=== PATIENT | female | born 1955 | race Caucasian/White ===

== ENCOUNTER 2017-07-06 06:05 | Day surgery (SDC) | payer BC ==
--- NOTE | 2017-07-05 23:39 | HP ---
SHORT STAY HISTORY AND PHYSICAL DATE OF ADMISSION: 07/06/2017 HISTORY OF PRESENT ILLNESS: This is a 61-year-old female who comes in for an EGD and colon oscopy. The patient also has a family history of colon cancer. At the present time, she has no spec [facility] symptoms. She does complain of chronic acid reflux. She had no heartburn, indigestion and r egurgitation. The reflux is very longstanding. The patient is undergoing EGD because of longstandin g acid reflux and a colonoscopy for colon cancer screening. ALLERGIES: None. MEDICAL ILLNESSES: 1. Chronic acid reflux. 2. Cardiomyopathy. 3. Hypertension. 4. Chronic obstructive pulmonary disease. 5. Cardiac arrhythmia. 6. Rheumatoid arthritis. 7. Mitral valve prolapse. SOCIAL HISTORY: Ex-smoker. She does drink alcohol socially. PHYSICAL EXAMINATION: GENERAL: Appears comfortable. VITAL SIGNS: Pulse is 72, blood pressure 110/76. NECK: Supple. CARDIOVASCULAR SYSTEM: First and second heart sounds are normal. LUNGS: Clear to auscultation. ABDOMEN: Soft to palpate. No organomegaly. No tenderness. No masses. ADMITTING DIAGNOSES: 1. Chronic acid reflux. 2. Family history of colon cancer. PLAN: EGD and colonoscopy.
--- NOTE | 2017-07-06 12:03 | OP ---
DATE OF SURGERY: 07/06/2017 OPERATIVE PROCEDURE: Colonoscopy. PREOPERATIVE DIAGNOSIS: A 61-year-old female with family history of colon cancer, undergoi ng colonoscopy for colon cancer screening. POSTOPERATIVE DIAGNOSES: 1. Sigmoid diverticular disease. 2. Hemorrhoids. 3. Retained stool coating the mucosa throughout. PROCEDURE IN DETAIL: The patient was placed on her left lateral position and was given sedation by A nesthesia Department. A rectal exam was done before the scope was advanced into the rectum. The pat ient was found to have hemorrhoids. No other lesions were felt. A Pentax video colonoscope was intr oduced into the rectum and advanced all the way into the cecum. The patient has fecal material coati ng the mucosa of the colon. Water was irrigated and washed out. The appendiceal orifice, ileocecal valve, and cecum, no pathology seen. The mucosa appeared normal throughout the colon. Withdrawal of scope from the cecum, ascending colon, hepatic flexure, transverse colon, splenic flexure, and desce nding colon, no pathology seen. The sigmoid colon showed scattered diverticular disease. Retroflexi on of the scope in the rectum showed hemorrhoids.
--- NOTE | 2017-07-06 13:03 | OP ---
DATE OF PROCEDURE: 07/06/2017 SURGEON: Adolph Mendoza M.D. OPERATIVE PROCEDURE: Esophagogastroduodenoscopy with biopsy. PREOPERATIVE DIAGNOSIS: A 61-year-old female with chronic acid reflux, undergoing esophago gastroduodenoscopy. POSTOPERATIVE DIAGNOSES: 1. Esophagitis with bleeding erosions over the distal esophagus. 2. Hiatus hernia. Otherwise, exam was normal. PROCEDURE IN DETAIL: The patient was placed on her left lateral position and was given sedation by A nesthesia Department. Pentax video gastroscope under direct vision was passed down the oropharynx, p ast the GE junction, into the stomach and subsequently into the descending duodenum. The esophageal mucosa appeared normal over the upper two-thirds. Over the distal esophagus, patient was found to naqvi ve linear erosions with esophagitis. She has a moderate sized hiatus hernia. Retroflexion failed to show any lesions in the fundus or cardia. The gastric body, gastric antrum, no pathology seen. The duodenal bulb and descending duodenum, no pathology seen. Biopsies were obtained from the distal es ophagus. The stomach was decompressed and the scope removed. DISCHARGE PLANNING RECOMMENDATIONS: 1. Discontinue omeprazole as before. 2. Advised to call me if she develops any chest pain, abdominal pain, fever, melena, and hematochezi a. 3. To come back in clinic in 2 weeks.
[2017-07-06] MEDS ORDERED: Propofol 200 MG/20 ML VIAL ONE (15:59)
[2017-07-06] MEDS ORDERED: Lidocaine 1% PF 5 ML VIAL ONE (15:59)
== END 2017-07-06 09:40 | disposition home or self-care (01) ==
LOC: SDC 06:05
PROVIDERS: ATTEND Internal Medicine Gastroenterology
PROC: 0DJD8ZZ Inspection of Lower Intestinal Tract, Via Natural or Artificial Opening Endoscopic (ICD-10-PCS; principal; 2017-07-06)
PROC: 0DB58ZX Excision of Esophagus, Via Natural or Artificial Opening Endoscopic, Diagnostic (ICD-10-PCS; principal; 2017-07-06)
DX: Z12.11 Encounter for screening for malignant neoplasm of colon (principal); K21.0 Gastro-esophageal reflux disease with esophagitis; K44.9 Diaphragmatic hernia without obstruction or gangrene; K57.30 Diverticulosis of large intestine without perforation or abscess without bleeding; K64.9 Unspecified hemorrhoids; I42.9 Cardiomyopathy, unspecified; I10 Essential (primary) hypertension; J44.9 Chronic obstructive pulmonary disease, unspecified; M06.9 Rheumatoid arthritis, unspecified; I34.1 Nonrheumatic mitral (valve) prolapse; Z80.0 Family history of malignant neoplasm of digestive organs; Z90.49 Acquired absence of other specified parts of digestive tract; Z98.890 Other specified postprocedural states
CPT/HCPCS: 88305; 88312; 88313; J2001; J2704

== ENCOUNTER 2018-01-09 17:11 | Emergency (ER) | payer BC ==
--- NOTE | 2018-01-09 19:06 | RAD ---
PORTABLE CHEST: 01/09/18 HISTORY: Abdominal pain with diarrhea. Lungs are clear. The heart and mediastinum are unremarkable. IMPRESSION: No acute findings. POS: [facility]
[2018-01-09 19:17] LABS: #Basophils 0.1 thou/uL (0.0-0.2); #Eosinphils 0.1 thou/uL (0.0-0.7); #Lymphocytes 3.8 thou/uL (1.20-3.40); #Monocytes 0.6 thou/uL (0.11-0.59); #Neutrophils 5.6 thou/uL (1.40-6.50); %Eosinophils 0.8 % (0.0-10.0); %Lymphocytes 37.4 % (21.0-51.0); %Monocytes 5.8 % (0.0-10.0); %Neutrophils 55.1 % (42.0-75.0); Hemoglobin 12.4 g/dL (12.0-16.0); Mean Corpuscular HGB CONC 32.5 g/dL (32.0-36.0); Mean Corpuscular Hemoglobin 29.9 pg (27.0-31.0); Mean Platelet Volume 6.4 fL (7.4-10.4); Platelet Count 369 thou/uL (130-400); RBC Distribution Width 15.4 % (11.5-14.5); Red Blood Cell (RBC) Count 4.13 mill/uL (4.20-5.40); White Blood Cell (WBC) Count 10.2 thou/uL (4.8-10.8)
[2018-01-09 19:22] LABS: BHCG - Serum Negative (NEGATIVE); Pregs Control Background? CLEAR/WHITE (CLR/WHITE); Pregs Control Bar Appear? YES (CONTROL BAR)
[2018-01-09 19:30] LABS: ALT (SGPT) 13 U/L (8-55); AST (SGOT) 11 U/L (5-34); Albumin 4.4 g/dL (3.4-4.8); Alkaline Phosphatase 85 U/L (40-150); Anion Gap 16 mmol/L (10-20); BUN (Urea Nitrogen) 21 mg/dL (9.8-20.1); Bilirubin, Total 0.3 mg/dL (0.2-1.2); Calc. Creatinine Clearance 0 mL/min (70-130); Calcium 10.1 mg/dL (7.8-10.44); Carbon Dioxide 19 mmol/L (23-31); Chloride 107 mmol/L (98-107); Estimated GFR-MDRD 53; Globulin 2.7 g/dL (2.4-3.5); Glucose 107 mg/dL (80-115); Potassium 3.7 mmol/L (3.5-5.1); Protein, Total 7.1 g/dL (6.0-8.3); Sodium 138 mmol/L (136-145)
[2018-01-09 19:35] LABS: CKMB 0.5 ng/mL (0-6.6); Troponin I Less than 0.010 ng/mL (< 0.028)
[2018-01-09 21:22] LABS: Bilirubin Negative (Negative); Blood, Urine Large (Negative); Clarity CLOUDY (Clear); Glucose, Urine (Dipstick) Negative (Negative); Leukocyte Trace (Negative); Nitrite Negative (Negative); Protein, Urine (Dipstick) Negative (Neg-Trace); Specific Gravity, Urine 1.017 (1.002-1.036); Urobilinogen 0.2 mg/dL (0.2-1.0); pH, Urine 5.5 (5.0-9.0)
[2018-01-09 21:24] LABS: Bacteria/HPF None Seen HPF (None Seen); Hyaline Casts/LPF 7-10 HYALINE CAST LPF (0-3 Hyaline); Pathc Cast-AUWi Flag 2.32 (0-2.49); Squamous Epithelial None Seen HPF (0-3)
== END 2018-01-09 22:56 | disposition home or self-care (01) ==
LOC: ERS 17:11
DX: A04.9 Bacterial intestinal infection, unspecified (principal); I47.1 Supraventricular tachycardia; E78.5 Hyperlipidemia, unspecified; J44.9 Chronic obstructive pulmonary disease, unspecified; F41.9 Anxiety disorder, unspecified; F17.210 Nicotine dependence, cigarettes, uncomplicated; Z87.442 Personal history of urinary calculi; Z79.82 Long term (current) use of aspirin; Z79.899 Other long term (current) drug therapy
CPT/HCPCS: 36415; 71045; 80053; 81003; 81015; 82553; 84443; 84484; 84703; 85025; 93005; 96360

== ENCOUNTER 2018-02-12 10:56 | Outpatient (CLI) | payer BC | END 2018-02-12 10:57 | disposition home or self-care (01) | LOC: BICMAMMO 10:56 | PROVIDERS: ATTEND Internal Medicine Rheumatology | DX: M81.0 Age-related osteoporosis without current pathological fracture (principal); M85.89 Other specified disorders of bone density and structure, multiple sites | CPT/HCPCS: 77080 ==

== ENCOUNTER 2018-05-19 11:43 | Emergency (ER) | payer BC ==
[2018-05-19] MEDS ORDERED: Ondansetron PF 4 MG/2 ML Vial ONE (12:06)
[2018-05-19] MEDS ORDERED: Ketorolac Tromethamine 30 MG/ML VIAL ONE (12:06)
[2018-05-19 12:17] LABS: #Basophils 0.1 thou/uL (0.0-0.2); #Eosinphils 0.1 thou/uL (0.0-0.7); #Lymphocytes 2.9 thou/uL (1.20-3.40); #Monocytes 1.3 thou/uL (0.11-0.59); #Neutrophils 7.6 thou/uL (1.40-6.50); %Basophils 0.9 % (0.0-1.0); %Eosinophils 1.2 % (0.0-10.0); %Monocytes 10.8 % (0.0-10.0); %Neutrophils 63.2 % (42.0-75.0); Hemoglobin 11.1 g/dL (12.0-16.0); Mean Corpuscular HGB CONC 31.7 g/dL (32.0-36.0); Mean Corpuscular Hemoglobin 27.8 pg (27.0-31.0); Mean Corpuscular Volume 87.7 fL (78.0-98.0); Mean Platelet Volume 7.3 fL (7.4-10.4); Platelet Count 315 thou/uL (130-400); Red Blood Cell (RBC) Count 3.98 mill/uL (4.20-5.40); White Blood Cell (WBC) Count 12.1 thou/uL (4.8-10.8)
[2018-05-19 12:44] LABS: ALT (SGPT) 8 U/L (8-55); AST (SGOT) 17 U/L (5-34); Albumin 4.2 g/dL (3.4-4.8); Alkaline Phosphatase 74 U/L (40-150); Anion Gap 15 mmol/L (10-20); BUN (Urea Nitrogen) 21 mg/dL (9.8-20.1); Bilirubin, Total 0.6 mg/dL (0.2-1.2); Calc. Creatinine Clearance 0 mL/min (70-130); Calcium 9.3 mg/dL (7.8-10.44); Carbon Dioxide 22 mmol/L (23-31); Chloride 106 mmol/L (98-107); Estimated GFR-MDRD 38; Globulin 2.9 g/dL (2.4-3.5); Glucose 93 mg/dL (80-115); Lipase 32 U/L (8-78); Potassium 4.7 mmol/L (3.5-5.1); Protein, Total 7.1 g/dL (6.0-8.3); Sodium 138 mmol/L (136-145)
[2018-05-19 12:57] LABS: Bilirubin Negative (Negative); Blood, Urine Moderate (Negative); Clarity CLEAR (Clear); Glucose, Urine (Dipstick) Negative (Negative); Leukocyte Negative (Negative); Nitrite Negative (Negative); Protein, Urine (Dipstick) Negative (Neg-Trace); Urobilinogen 0.2 mg/dL (0.2-1.0); pH, Urine 5.5 (5.0-9.0)
[2018-05-19 13:01] LABS: Bacteria/HPF None Seen HPF (None Seen); Hyaline Casts/LPF 0-3 HYALINE CAST LPF (0-3 Hyaline); Pathc Cast-AUWi Flag 0.29 (0-2.49); RBC/HPF 21-50 HPF (0-3); Squamous Epithelial 0-3 HPF (0-3); WBC/HPF 0-3 HPF (0-3)
--- NOTE | 2018-05-19 13:52 | CT ---
CT ABDOMEN WITHOUT CONTRAST CT PELVIS WIHTOUT CONTRAST: HISTORY: Stone protocol. The patient has had a stent placed before. Pain. COMPARISON: None. FINDINGS: CT ABDOMEN: The lung bases are clear. Normal heart size. No significant pericardial fluid. The visualized aorta does demonstrate mild aranza ngation. Minimal atherosclerotic disease is noted. The gallbladder is surgically absent. Limited evaluation of the solid organs due to the lack of IV contrast. Grossly, no solid organ abnor mality. Symmetric attenuation of the psoas muscles. No gastrohepatic, retrocrural, or periportal ly mphadenopathy. There is a small amount of fluid in the right pericolic gutter. Limited evaluation of the alimentary canal by the lack of oral contrast. Gastric mucosal and duodenu m have an overall normal appearance. There is a segment of nonspecific, mildly prominent fluid-fille d loops of small bowel measuring 2.6 cm. Adjacent small bowel loops are decompressed. A normal-flora samuel appendix is identified. A small amount of debris is noted in the mid portion of the appendix. T here is fatty infiltration of the right colonic mucosa. Scattered diverticula. No evidence of diver ticulitis. Mild to moderate dilatation of the right intra- and extrarenal collecting system. There are punctate nonobstructing calculi in the right kidney, presumed to be cortical in location. There is a 5 mm ca lculus in the mid portion of the right ureter. Distal to the catheter, the right extrarenal collecti ng system is decompressed. No evidence of left-sided obstructive uropathy. PELVIC CT: Uterus and adnexal structures are unremarkable. The urinary bladder is unremarkable. Limited evalua tion due to inadequate distention of the bladder. No pelvic mass, lymphadenopathy, free air, or free fluid. No lytic or blastic lesions in the osseous structures. IMPRESSION: Mild to moderate right-sided obstructive uropathy secondary to a 5 mm calculus in the mid right urete r. POS: [facility]
== END 2018-05-19 14:00 | disposition home or self-care (01) ==
LOC: ERS 11:43
DX: N13.2 Hydronephrosis with renal and ureteral calculous obstruction (principal); E78.5 Hyperlipidemia, unspecified; M06.9 Rheumatoid arthritis, unspecified; J44.9 Chronic obstructive pulmonary disease, unspecified; F41.9 Anxiety disorder, unspecified; F17.210 Nicotine dependence, cigarettes, uncomplicated; I49.9 Cardiac arrhythmia, unspecified; I47.1 Supraventricular tachycardia; Z87.442 Personal history of urinary calculi; Z79.899 Other long term (current) drug therapy
CPT/HCPCS: 36415; 74176; 80053; 81003; 81015; 83690; 85025; 96361; 96374; 96375; J1885; J2405

== ENCOUNTER 2018-05-23 08:07 | Day surgery (SDC) | payer BC ==
[2018-05-22 11:40] VITALS: BMI 26.9
[2018-05-23] MEDS ORDERED: Levofloxacin 500 mg/D5W 100 ml Premix Bag ONE (09:40)
[2018-05-23] MEDS ORDERED: Fentanyl 100 MCG/2 ML VIAL ONE ×3 (11:09→13:51)
--- NOTE | 2018-05-23 11:37 | RAD ---
PORTABLE CHEST: Date: 05-23-18 Provided Clinical History: Pre op. FINDINGS: Comparison 01-09-18. Cardiac and mediastinal silhouette is unchanged in appearance. Hiatal hernia is demonstrated. No foca l consolidation, pleural fluid, or pneumothorax apparent. Post-operative changes are seen involving t he right shoulder. IMPRESSION: No evidence for an acute cardiopulmonary process. POS: [facility]
--- NOTE | 2018-05-23 11:42 | RAD ---
AP ABDOMEN: History: Patient with renal calculus. Evaluate. Date: 05-23-18 Comparison: 12-31-14 FINDINGS: AP abdomen demonstrates an approximately 8.6 mm radiopaque density over the proximal right ureter. Th is is concerning for a proximal right ureteral calculus. No other radiopaque density is seen. IMPRESSION: Approximately 8.6 mm area of opacity over the proximal right ureter compatible with a right ureteral calculus. POS: [facility]
[2018-05-23] MEDS ORDERED: Iothalamate Meglumine 60% 50 ML VIAL FS ONE (11:53)
--- NOTE | 2018-05-23 13:56 | OP ---
DATE OF PROCEDURE: 05/23/2018 SERVICE: Urology. SURGEON: Jeffrey Way M.D. PREOPERATIVE DIAGNOSIS: Right ureteral stone. POSTOPERATIVE DIAGNOSIS: Right ureteral stone. PROCEDURE PERFORMED: Right ureteroscopy, laser lithotripsy, basket extraction of stone, placement of a 6 x 26 double-J stent. INDICATIONS FOR PROCEDURE: Ms. Kumar is a 62-year-old white female who presented with right fla nk pain. A CT demonstrated an 8 mm proximal right ureteral stone. After discussing options, she had agreed to proceed forward with ureteroscopy, laser lithotripsy. Risks and benefits have been discus sed and she has agreed to proceed forward. DESCRIPTION OF PROCEDURE: After identification of armband and verification of consent, the patient w as brought back to the operating room where she underwent anesthesia with an LMA. She was placed in the dorsal lithotomy position and prepped and draped in usual sterile fashion. After appropriate roselyn eout, a lubricated 22 [place]uran rigid cystoscope was introduced per urethra into the bladder. Attention was turned to the right ureteral orifice which was cannulated with a 0.035 sensor wire. The wire wa s able to be navigated around the stone with some difficulty, but ultimately did get up into the kidn ey. The cystoscope was then used to drain the bladder and removed leaving the sensor wire in place. A dual-lumen catheter was advanced over the sensor wire up to the level of the mid ureter and an Amp latz Super Stiff wire was placed through the second lumen up into the level of the renal pelvis. The dual lumen was then removed and the sensor wire affixed to the drapes as a safety wire. An 11/13 x 36 cm ureteral access sheath was advanced over the Super Stiff wire to the level of the mid to proxim al ureter where the stone was seen and then the inner cannula was then removed leaving the outer valdes th and the sensor wire in place as a safety wire. A disposable digital ureteroscope was advanced thr ough the ureteral access sheath up to the level of the stone, the stone was completely impacted and i t did appear that the sensor wire was tunneled submucosally under the mucosa pass the stone and then reentered back into the lumen again into the kidney. As this was stable in place I went ahead and wo rk on the stone and figured out to repositioned the wire at the end of the case. A 365 micron laser fiber was used to fragment the stone into small pieces. During fragmentation, the stone was blown ba ck up into the kidney where it was worked on there. After fragmentation a 1.9 [place]uran 0 tip nitinol b asket was used to extract all fragments until nothing was remaining other than tiny dust pieces that were all less than 1 mm. No large fragments were identified. Satisfied, the wire was removed under direct visualization and fed back into the ureteroscope to ensure that it was within the lumen of the ureter. The ureteroscope and ureteral access sheath were then removed and the dual lumen advanced o jase the sensor wire back into the bladder and ureter. A Super Stiff wire was then place with a dual- lumen catheter back into the kidney. The dual lumen removed. The ureteral access sheath was advance d over the Super Stiff wire back to the level of the mid ureter. The inner cannula removed with the Super Stiff wire leaving the outer sheath in place and the sensor wire in place as a safety wire. Th e ureteroscope was then brought back in to visualize the area of the submucosal tunnel. There was a small mucosal injury in that location with mild abrasion and what appeared to be a stone fragment wed ged underneath the mucosa. The basket was able to be tunneled underneath the mucosa and gently opene d enough to grab the basket and brought back out. The stone fragment was retrieved and it did not ap pear to be any stone fragments underneath the mucosa. Satisfied that all stone fragments were remove d, pull back ureteroscopy was employed and no other additional stone fragments were seen within the u reter. The cystoscope was then backloaded over the sensor wire back into the bladder and a 6 x 26 do uble-J stent was advanced over the sensor wire up to the level of the kidney. The sensor wire was th en removed and had a good curl in the kidney and good curl in the bladder. The bladder was then empt ied and cystoscope removed. The patient then awakened and taken to PACU for recovery in stable condi tion. COMPLICATIONS: None. ESTIMATED BLOOD LOSS: Minimal. RETAINED TUBES AND DRAINS: A 6 x 26 double-J stent on the right. SPECIMENS: Stone for stone analysis. DISPOSITION: The patient will be discharged home and keep her stent in for approximately 2 weeks at which time she will follow up with me for a cystoscopy and stent removal.
[2018-05-28 10:23] LABS: CA Oxalate Dihydrate 17 % (.); CA Oxalate Monohydrate 80 % (.); Color Brown (.); Stone Weight 54.4 mg (.)
== END 2018-05-23 15:16 | disposition home or self-care (01) ==
LOC: SDC 08:07
PROVIDERS: ATTEND Urology
PROC: 0T768DZ Dilation of Right Ureter with Intraluminal Device, Via Natural or Artificial Opening Endoscopic (ICD-10-PCS; principal; 2018-05-23)
PROC: 0TF68ZZ Fragmentation in Right Ureter, Via Natural or Artificial Opening Endoscopic (ICD-10-PCS; principal; 2018-05-23)
DX: N20.1 Calculus of ureter (principal); N17.9 Acute kidney failure, unspecified; J44.9 Chronic obstructive pulmonary disease, unspecified; M06.9 Rheumatoid arthritis, unspecified; F17.200 Nicotine dependence, unspecified, uncomplicated; Z79.899 Other long term (current) drug therapy
CPT/HCPCS: 71045; 74018; 76000; 82365; 88300; 93005; 93010; C1758; C1769; J1956; J3010; Q9961

== ENCOUNTER 2018-07-10 09:56 | Outpatient (CLI) | payer BC ==
--- NOTE | 2018-07-10 11:14 | ULT ---
RENAL SONOGRAM: HISTORY: Right ureteral calculus. FINDINGS: Right kidney is 8.9 cm length and the left is 9.2 cm. No hydronephrosis or mass visible. No stone d irectly visualized. Urinary bladder is unremarkable. IMPRESSION: No evidence of urinary tract obstruction. POS: [facility]
== END 2018-07-10 09:57 | disposition home or self-care (01) ==
LOC: BICULT 09:56
PROVIDERS: ATTEND Urology
DX: N20.1 Calculus of ureter (principal)
CPT/HCPCS: 76770

== ENCOUNTER 2019-03-27 12:11 | Outpatient (CLI) | payer BC ==
--- NOTE | 2019-03-27 14:04 | CT ---
CT PULMONARY LUNG SCAN 03/27/19 HISTORY: Low dose lung screening. History of smoking. No prior comparisons. FINDINGS: There is no suspicious pulmonary nodule. Linear densities related to atelectasis or scar are present and there is mild subpleural honeycombing and interstitial prominence bilaterally, predominantly ante riorly. Thoracic kyphosis and osseous degenerative change are present. There is incidental note of a moderate sized hiatal hernia. IMPRESSION: Lung RADS primary category 1, negative. No nodules are identified. Continue annual screening with low dose CT in 12 months. POS: [facility]
== END 2019-03-27 12:12 | disposition home or self-care (01) ==
LOC: CT 12:11
PROVIDERS: ATTEND Family Medicine
DX: F17.210 Nicotine dependence, cigarettes, uncomplicated (principal)
CPT/HCPCS: G0297

== ENCOUNTER 2019-10-15 13:44 | Outpatient (CLI) | payer BC ==
--- NOTE | 2019-10-15 15:03 | MRI ---
MRI OF LEFT HIP WITHOUT CONTRAST: HISTORY: Primary arthrosis of the left hip with left hip pain. COMPARISON: None. FINDINGS: Motion artifact slightly limits image detail. There is a full-thickness tear involving the posterior superior acetabular labrum with an associated 1.2 cm paralabral cyst. There are areas of full-thickness articular cartilage thinning involving the anterior superior acetabulum cartilage with full-thickness articular cartilage thinning. The liga mentum teres is intact. No joint effusion is evident. There is mild tendinosis of the gluteus minimus tendon and moderate tendinosis of the left gluteus medius tendon with overlying trochanteric bursitis. No iliopsoas bursitis is evident. The left hamstring origin and left rectus femoris origin is normal-appearing. No lymphadenopathy is present. Visualized intrapelvic contents demonstrat es scattered colonic diverticula. No free fluid is identified. No enlarged lymph nodes are noted. No acute fracture is demonstrated. There is mild degenerative change seen involving the right hip. Vi sualized sciatic nerve has a normal appearance. IMPRESSION: 1. Mild osteoarthrosis of the left hip with associated posterior superior acetabular labral tear and paralabral cyst. 2. Mild gluteus minimus and moderate gluteus medius tendinosis with mild trochanteric bursitis. Transcribed Date/Time: 10/15/2019 3:12 PM
== END 2019-10-15 13:45 | disposition home or self-care (01) ==
LOC: SCSMRI 13:44
PROVIDERS: ATTEND Internal Medicine Rheumatology
DX: M16.12 Unilateral primary osteoarthritis, left hip (principal); S73.192A Other sprain of left hip, initial encounter; M67.854 Other specified disorders of tendon, left hip; M70.62 Trochanteric bursitis, left hip

== ENCOUNTER 2020-04-19 16:00 | Outpatient (CLI) | payer BC ==
--- NOTE | 2020-04-19 16:45 | CT ---
Low-dose screening chest CT: 04/19/2020 COMPARISON: 03/27/2019 HISTORY: Current smoker for over 50 years, lung cancer screening, personal history of nicotine depend ence TECHNIQUE: Noncontrast enhanced axial CT imaging through the chest at 2 mm intervals with coronal and sagittal reformatted imaging using the low-dose screening protocol. FINDINGS: The lack of contrast media limits assessment of the imaged viscera, vascular structures, an d for lymphadenopathy. There is a right shoulder arthroplasty. Limited assessment of the upper abdomen demonstrates minimal perinephric stranding on the left, similar when compared to a prior CT of the abdomen and pelvis performed 06/19/2018. Cholecystectomy clips are present. There is diverticulosis involving a partiall y imaged transverse colon. A stable moderate-sized sliding type hiatal hernia is present. No pleural, pericardial, or mediastinal fluid is seen. Limited assessment of the chest for lymphadenopathy appears unremarkable. There is atherosclerotic calcification involving the aortic arch, the proximal great vessels, and the coronary arterial vasculature. Stable tortuosity of the descending thoracic aorta. There is a tiny left upper lobe nodule on axial image 20, unchanged when compared to the prior examin ation and of doubtful clinical significance. There is an anterior inferior left upper lobe nodule best seen on axial image 73, measuring less than 4 mm, grossly unchanged. There is no new or dominant pulmonary parenchymal mass lesion or nodule within the left upper lobe. T here is a small posterior left lower lobe pulmonary nodule measuring less than 4 mm on axial image 114, stable. No new pulmonary parenchymal mass lesion or nodule within the left lower lobe. No dominant pulmonary parenchymal mass lesion or nodule is evident within the right middle, right upper, or right lower lobes. No endobronchial lesion is evident. No acute osseous abnormality. Stable thoracic spine degenerative changes. Hyperinflation consistent with air trapping again noted. Lung RADS category 2-benign appearance or behavior. Recommend continued annual screening low-dose [facility] CT.
== END 2020-04-19 16:01 | disposition home or self-care (01) ==
LOC: BICCT 16:00
PROVIDERS: ATTEND Family Medicine
DX: Z12.2 Encounter for screening for malignant neoplasm of respiratory organs (principal); F17.210 Nicotine dependence, cigarettes, uncomplicated
CPT/HCPCS: G0297

== ENCOUNTER 2022-01-18 11:07 | Outpatient (CLI) | payer MEDICARE, BC | END 2022-01-18 11:08 | disposition home or self-care (01) | LOC: BICCT 11:07 | PROVIDERS: ATTEND Family Medicine | DX: Z12.2 Encounter for screening for malignant neoplasm of respiratory organs (principal); F17.210 Nicotine dependence, cigarettes, uncomplicated; K44.9 Diaphragmatic hernia without obstruction or gangrene; K57.30 Diverticulosis of large intestine without perforation or abscess without bleeding; I25.10 Atherosclerotic heart disease of native coronary artery without angina pectoris; I70.0 Atherosclerosis of aorta | CPT/HCPCS: 71271 ==

== ENCOUNTER 2022-03-03 12:33 | Outpatient (CLI) | payer MEDICARE, BC | END 2022-03-03 12:34 | disposition home or self-care (01) | LOC: ULT 12:33 | PROVIDERS: ATTEND Internal Medicine Nephrology | DX: N36.8 Other specified disorders of urethra (principal) | CPT/HCPCS: 76770 ==

== ENCOUNTER 2022-07-25 13:18 | Outpatient (CLI) | payer MEDICARE, BC | END 2022-07-25 13:19 | disposition home or self-care (01) | LOC: BICMAMMO 13:18 | PROVIDERS: ATTEND Internal Medicine Rheumatology | DX: M81.0 Age-related osteoporosis without current pathological fracture (principal) | CPT/HCPCS: 77080 ==

== ENCOUNTER 2022-07-25 14:06 | Outpatient (CLI) | payer MEDICARE, BC | END 2022-07-25 14:07 | disposition home or self-care (01) | LOC: RAD 14:06 | PROVIDERS: ATTEND Internal Medicine Rheumatology | DX: M16.11 Unilateral primary osteoarthritis, right hip (principal); M47.896 Other spondylosis, lumbar region; M81.0 Age-related osteoporosis without current pathological fracture | CPT/HCPCS: 72110; 77080 ==

== ENCOUNTER 2024-06-30 07:05 | Outpatient (CLI) | payer MEDICARE, BC | END 2024-06-30 07:06 | disposition home or self-care (01) | LOC: BICCT 07:05 | PROVIDERS: ATTEND Family Medicine | DX: R63.4 Abnormal weight loss (principal); K57.30 Diverticulosis of large intestine without perforation or abscess without bleeding; K44.9 Diaphragmatic hernia without obstruction or gangrene | CPT/HCPCS: 36415; 74178; 82565 ==

== ENCOUNTER 2024-08-02 16:11 | Emergency (ER) | payer MEDICARE, BC ==
[~2024-08-02 16:11] MED LIST: Iopamidol-370 76% 500 ML MDV (1 ML CHARGE) ONE
[2024-08-02] MEDS ORDERED: Pantoprazole 40 MG VIAL ONE (16:41)
[2024-08-02] MEDS ORDERED: Ondansetron PF 4 MG/2 ML Vial ONE (16:57)
[2024-08-02 17:04] LABS: #Basophils 0.08 10x3/uL (0.0-0.2); %Basophils 0.7 % (0.0-1.0); %Eosinophils 0.3 % (0.0-10.0); %Lymphocytes 20.7 % (21.0-51.0); %Monocytes 5.4 % (0.0-10.0); %Neutrophils 72.6 % (42.0-75.0); Hematocrit 42.1 % (36.0-47.0); Hemoglobin 13.7 g/dL (12.0-16.0); Mean Corpuscular HGB CONC 32.5 g/dL (32.0-36.0); Mean Corpuscular Hemoglobin 31.4 pg (27.0-31.0); Mean Corpuscular Volume 96.3 fL (78.0-98.0); Mean Platelet Volume 9.3 fL (7.4-10.4); Platelet Count 363 10x3/uL (130-400); RBC Distribution Width 12.4 % (11.5-14.5); Red Blood Cell (RBC) Count 4.37 mill/uL (4.20-5.40)
[2024-08-02 17:17] LABS: ALT (SGPT) 11 U/L (8-55); AST (SGOT) 26 U/L (5-34); Albumin 4.6 g/dL (3.4-4.8); Alkaline Phosphatase 64 U/L (40-110); Anion Gap 21 mmol/L (10-20); BUN (Urea Nitrogen) 21 mg/dL (9.8-20.1); Bilirubin, Total 0.6 mg/dL (0.2-1.2); Calc. Creatinine Clearance 0 mL/min (70-130); Carbon Dioxide 19 mmol/L (23-31); Chloride 101 mmol/L (98-107); Estimated GFR 47; Globulin 4.9 g/dL (2.4-3.5); Glucose 90 mg/dL (80-115); Lipase 40 U/L (8-78); Potassium 4.6 mmol/L (3.5-5.1); Protein, Total 9.5 g/dL (5.8-8.1); Sodium 136 mmol/L (136-145)
== END 2024-08-02 18:25 | disposition home or self-care (01) ==
LOC: ERS 16:11
DX: K21.9 Gastro-esophageal reflux disease without esophagitis (principal); K52.9 Noninfective gastroenteritis and colitis, unspecified; F17.210 Nicotine dependence, cigarettes, uncomplicated
CPT/HCPCS: 74177; 80053; 83690; 85025; 96374; 96375; 99284; J2405; J2470; Q9967; 36415